=== PATIENT | male | born 1955 | race Caucasian/White ===

== ENCOUNTER 2016-12-28 17:21 | Emergency (ER) | payer MEDICAID, OTHER ==
[~2016-12-28] VITALS: Wt 102.0 kg
[~2016-12-28 17:21] MED LIST: IBUP400T22 PO
[2016-12-28] MEDS ORDERED: ONDANSETRON 4 MG INJ IV STA ×2 (18:39→21:34)
[2016-12-28] MEDS ORDERED: KETOROLAC 15 MG INJ IV STA (18:39)
[2016-12-28] MEDS ORDERED: SOD CHLORIDE 0.9% 1,000 ML IV STA (18:39)
--- NOTE | 2016-12-28 18:51 | ERD ---
ER Documentation Chief Complaint Chief Complaint NAUSEA VOMITING BACK FLANK PAIN X 1 WEEK; ETOH HPI This is a 61-year-old male with a history of alcohol abuse and a reported liver surgery in the past who is presenting with sharp colicky crampy abdominal and bilateral flank pain, nausea with nonbilious nonbloody vomiting for 1 week, worse after he drinks alcohol. She reportedly drinks daily and does admit to drinking 5 beers today. He reports that his symptoms started again today after drinking. The patient does not endorse any trouble with urination. He has not had any pain or burning or bleeding with urination. He has had no changes to bowel movements. The patient denies feeling sick recently. The patient denies fever or chills. The patient has had no headache or vision changes. The patient does not endorse neck or back pain. The patient denies lightheadedness or dizziness. The patient has had no chest pain or shortness of breath or trouble breathing. The patient has had no focal deficits. The patient has had no weakness or numbness or tingling to the face or extremities. ROS All systems reviewed and are negative except as per history of present illness. Medications Home Meds Active Scripts Famotidine* (Pepcid*) 20 Mg Tablet, 20 MG PO BID for 4 Days, TAB Prov:TENNILLE MONTANO MD 12/28/16 Ibuprofen* (Motrin*) 400 Mg Tab, 400 MG PO Q6, #15 TAB Prov:CRISTY SOARES NP 12/04/15 Allergies Allergies: Coded Allergies: No Known Allergy (Unverified , 12/28/16) PMhx/Soc History of Surgery: Yes Anesthesia Reaction: No Hx Neurological Disorder: No Hx Respiratory Disorders: No Hx Cardiac Disorders: No Hx Psychiatric Problems: No Hx Miscellaneous Medical Probl: Yes (?hepatic stent) Hx Alcohol Use: Yes Hx Substance Use: No Hx Tobacco Use: No FmHx Family History: No coronary disease, No diabetes Physical Exam Vitals Vital Signs Date Time Temp Pulse Resp B/P Pulse Ox O2 Delivery O2 Flow Rate FiO2 12/28/16 19:00 98.4 96 18 116/79 96 Room Air 12/28/16 17:23 99.0 120 18 116/79 99 Physical Exam Const: No apparent distress, well-developed, well-nourished Head: Atraumatic Eyes: Normal Conjunctiva. Extraocular movements intact. ENT: Normal External Ears, Nose and Mouth. Neck: Full range of motion. ~ No meningismus. Resp: Clear to auscultation bilaterally Cardio: Regular rate and rhythm, no murmurs Abd: Soft, non distended, epigastric tenderness. Normal bowel sounds Skin: No petechiae or rashes Back: No midline or flank tenderness Ext: No cyanosis, or edema Neur: Awake and alert. Cranial nerves intact. No facial droop. Normal strength and sensation in all extremities. Coordination with finger to nose normal. Psych: Normal Mood and Affect Result Diagram: 12/28/16190912/28/161909 Results 24 hrs Laboratory Tests Test 12/28/16 19:10 12/28/16 19:24 White Blood Count 6.310^3/ul Red Blood Count 4.9710^6/ul Hemoglobin 15.6g/dl Hematocrit 44.6% Mean Corpuscular Volume 89.7fl Mean Corpuscular Hemoglobin 31.4pg Mean Corpuscular Hemoglobin Concent 35.0g/dl Red Cell Distribution Width 13.2% Platelet Count 66560^3/UL Mean Platelet Volume 8.6fl Neutrophils % 33.1% Lymphocytes % 54.8% Monocytes % 10.2% Eosinophils % 1.1% Basophils % 0.6% Nucleated Red Blood Cells % 0.0/100WBC Neutrophils # 2.110^3/ul Lymphocytes # 3.510^3/ul Monocytes # 0.610^3/ul Eosinophils # 0.110^3/ul Basophils # 0.010^3/ul Nucleated Red Blood Cells # 0.010^3/ul Sodium Level 145mmol/L Potassium Level 3.8mmol/L Chloride Level 105mmol/L Carbon Dioxide Level 23mmol/L Anion Gap 21 Blood Urea Nitrogen 13mg/dl Creatinine 0.72mg/dl Glucose Level 103mg/dl Calcium Level 8.3mg/dl Total Bilirubin 0.2mg/dl Direct Bilirubin 0.00mg/dl Indirect Bilirubin 0.2mg/dl Aspartate Amino Transf (AST/SGOT) 79IU/L Alanine Aminotransferase (ALT/SGPT) 71IU/L Alkaline Phosphatase 121IU/L Total Protein 8.2g/dl Albumin 4.5g/dl Globulin 3.70g/dl Albumin/Globulin Ratio 1.21 Lipase 283U/L Ethyl Alcohol Level 264.0mg/dl Urine Color YELLOW Urine Clarity CLEAR Urine pH 5.0 Urine Specific [place] 1.012 Urine Ketones NEGATIVEmg/dL Urine Nitrite NEGATIVEmg/dL Urine Bilirubin NEGATIVEmg/dL Urine Urobilinogen NEGATIVEmg/dL Urine Leukocyte Esterase NEGATIVELeu/ul Urine Microscopic RBC 0/HPF Urine Microscopic WBC 0/HPF Urine Hemoglobin 1+mg/dL Urine Glucose NEGATIVEmg/dL Urine Total Protein 1+mg/dl Current Medications Medications (Trade) Dose Ordered Sig/Jeremias Route PRN Reason Start Time Stop Time Status Last Admin Dose Admin Sodium Chloride (NS) 1,000 ml @ 1,000 mls/hr Q1H STAT IV 12/28/16 18:39 12/28/16 19:38 DC 12/28/16 19:29 Ondansetron HCl (Zofran Inj) 4 mg ONCE STAT IV 12/28/16 18:39 12/28/16 18:42 DC 12/28/16 19:29 Ketorolac Tromethamine (Toradol) 15 mg ONCE STAT IV 12/28/16 18:39 12/28/16 18:42 DC 12/28/16 19:29 Ondansetron HCl (Zofran Inj) 4 mg ONCE STAT IV 12/28/16 21:34 12/28/16 21:35 DC 12/28/16 22:11 Famotidine (Pepcid Iv) 20 mg ONCE STAT IV 12/28/16 21:34 12/28/16 21:35 DC 12/28/16 22:11 Miscellaneous Medication (Gi Cocktail (2)) 40 ml ONCE STAT PO 12/28/16 21:34 12/28/16 21:35 DC 12/28/16 22:11 IV Flush 10 ml 10 ml STK-MED ONCE .ROUTE 12/28/16 22:11 12/28/16 22:12 DC 12/28/16 23:10 Sodium Chloride (NS) 100 ml @ ud STK-MED ONCE .ROUTE 12/28/16 22:11 12/28/16 22:12 DC 12/28/16 23:10 Iohexol (Omnipaque 300mg/ ml) 30 ml STK-MED ONCE .ROUTE 12/28/16 22:11 12/28/16 22:12 DC 12/28/16 23:10 Ondansetron HCl 4 mg 4 mg ONCE STAT IV 12/29/16 00:23 12/29/16 00:32 DC Sodium Chloride (NS) 1,000 ml @ 1,000 mls/hr Q1H ONCE IV 12/29/16 00:30 12/29/16 00:32 DC Ondansetron HCl (Zofran Odt) 8 mg ONCE STAT ODT 12/29/16 00:30 12/29/16 00:32 DC 12/29/16 00:33 Procedures/[facility] MDM The patient's presentation warrants further investigation. He does have a history of alcohol abuse. Pancreatitis is a possibility given his symptoms today. While he did not have CVA tenderness, the patient did initially endorse flank pain. Kidney stones should also be ruled out. I will evaluate for other etiologies of abdominal pain as well. The patient did not have a palpable abdominal pulsatile mass. His vital signs were stable. I have low suspicion for AAA. The patient does not have symptoms consistent with mesenteric ischemia or ischemic colitis. He does not have pain out of proportion to the exam. The patient actually looks quite comfortable in the room, though he does appear intoxicated. I have low suspicion for an atypical presentation of a cardiac pathology, but an EKG will be obtained to evaluate for any signs of cardiac ischemia. LABS The patient's blood work was obtained and reviewed. The patient's CBC shows no leukocytosis or left shift. The patient is afebrile and does not appear systemically ill. I do not suspect a systemic infection. The patient is not anemic today. The patient's platelet count is unremarkable. The patient's CMP shows no signs of emergent metabolic or electrolyte abnormality. The patient has normal renal and hepatic function testing. EKG EKG read by me: Rate/Rhythm: Regular rhythm, sinus tachycardia at 108 Intervals: Normal [place]: Left shifted Impression: Nonspecific repolarization abnormality without evidence of acute ischemia. IMAGING CXR 1. Suboptimal inspiration. 2. Small hiatal hernia 3. Diffuse degenerative spine changes. Electronically viewed and signed by Physician Bryan on 12/28/2016 19:25 CT abdomen and pelvis with contrast Reviewed by me - official read still pending. No signs of obstructive pathology in the bowel. No obvious areas of infection or inflammation or ischemia. Small hiatal hernia. Gallbladder not visualized, demonstrating a possible previous cholecystectomy. Aorta is normal in diameter. TREATMENT/DISPOSITION The patient's symptoms are likely related with his alcohol use. I have high suspicion for alcoholic gastritis. The patient may also have symptoms related to his hiatal hernia. The patient's tachycardia did improve after receiving IV fluids. He also endorsed feeling much better. The patient will be sent home with a prescription for Pepcid in the event that this is related to a gastric inflammatory process. The patient was encouraged to stop drinking. He does not have signs of withdrawal at this time. In fact, his alcohol level was quite elevated. The patient's CT of the abdomen and pelvis was not yet read by the radiologist. However, the patient did not want to wait for this read. The patient was instructed to call back for results. The patient should also be notified if there is was any pathology that I missed on my read. At this time, I feel that the patient stable for discharge. He will need follow -up with his primary care physician in 2-3 days. He will be given strict precautions with which to return to the emergency department. The patient's blood pressure was elevated at greater than 120/80 while in the emergency department. The patient was otherwise stable with no evidence of hypertensive urgency or emergency. The patient will require reevaluation of his blood pressure in 2-3 days, but this may be completed by a primary care physician as an outpatient. He does not require admission for blood pressure control. 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
[2016-12-28 19:00] VITALS: BP 116/79; PULSE 96; RESP 18; TEMP 98.4
--- NOTE | 2016-12-28 19:25 | RADRPT ---
PROCEDURE: XR Chest AP portable CLINICAL INDICATION: Abdominal pain TECHNIQUE: An AP portable radiograph of the chest was submitted. COMPARISON: None. FINDINGS: Support Hardware: None Cardiovascular: The cardiovascular silhouette appears unremarkable. Lung [place]: A suboptimal inspiration slightly compresses lung parenchyma but no discrete infiltrate is evident. Pleural Spaces: No pneumothorax or pleural effusion is identified. Osseous Structures: Mild diffuse degenerative spine changes are noted. Soft Tissues: There appears to be a small hiatal hernia. IMPRESSION: 1. Suboptimal inspiration. 2. Small hiatal hernia 3. Diffuse degenerative spine changes. Physician Bryan Date Time Electronically viewed and signed by Physician Bryan on 12/28/2016 19:25 /
[2016-12-28] MEDS ORDERED: LIDOCAINE/MYLANTA 40 ML BTL PO STA (21:34)
[2016-12-28] MEDS ORDERED: FAMOTIDINE 20 MG INJ IV STA (21:34)
[2016-12-28] MEDS ORDERED: IOHEXOL 300MG/ML 30 ML BTL ONE (22:11)
[2016-12-28] MEDS ORDERED: SOD CHLORIDE 0.9% 100 ML ONE (22:11)
[2016-12-28] MEDS ORDERED: FAMO-96 PO (23:13)
[2016-12-29] MEDS ORDERED: ONDANSETRON 4 MG INJ IV STA (00:23)
[2016-12-29] MEDS ORDERED: ONDANSETRON (ODT) 4 MG TAB ODT STA (00:30)
[2016-12-29] MEDS ORDERED: SOD CHLORIDE 0.9% 1,000 ML IV ONE (00:30)
--- NOTE | 2016-12-29 06:38 | RADRPT ---
PROCEDURE: CT abdomen and pelvis with intravenous contrast. CLINICAL INDICATION: Pain. TECHNIQUE: CT of the abdomen/pelvis was performed utilizing axial images with reconstructions in s agittal and coronal planes after uneventful administration of 100 cc Omnipaque 300. The administered radiation dose is CTDI 19.4 mGy, DLP 1130 mGy-cm. One or more of the following dose reduction techn iques were used: automated exposure control, adjustment of the mA and/or kV according to patient siz e and/or use of iterative reconstruction technique. COMPARISON: No pertinent prior examinations were submitted for comparison. FINDINGS: Visualized Chest: There is mild cardiomegaly. Abdomen: The spleen, pancreas, gallbladder,and adrenal glands are unremarkable. The liver is markedly, dif fusely decreased in attenuation, compatible with hepatic steatosis. There is mild right hydronephrosis and hydroureter extending to the level of the pelvic inlet. No de finite urinary calculi are seen. The left kidney is without hydronephrosis. There is no evidence of bowel obstruction. The appendix is normal. No intra-abdominal free air is seen. There is no evidence of intra-abdominal adenopathy or free fluid. Pelvis: There is no evidence of pelvic adenopathy or free fluid. The prostate and bladder are unremarkable. There are small, right greater than left fat containing inguinal hernias. Osseous structures: Unremarkable. IMPRESSION: Mild right hydronephrosis and proximal hydroureter without evidence of an obstructing calculus. This may be related to phase stricture, recent passage of a calculus or infection. Marked hepatic steatosis. Small bilateral fat containing inguinal hernias. RPTAT: HIKT .Ranulfo Mendoza MD, MD Date Time Electronically viewed and signed by .Ranulfo Mendoza MD, on 12/29/2016 00:05 .T/
== END 2016-12-29 00:25 | disposition home or self-care (01) ==
LOC: E/R 17:21
DX: K29.20 Alcoholic gastritis without bleeding (principal); F10.10 Alcohol abuse, uncomplicated
CPT/HCPCS: 36415; 71010; 74177; 80053; 80306; 81001; 83690; 85025; 87086; 93005; 96374; 96375; 96376; J1885; J2405; J7030; Q9967; Z7502; Z7610